=== PATIENT | female | born 1950 | race Caucasian/White ===

== ENCOUNTER → 2016-09-03 | Outpatient (CLI) | payer OTHER, MEDICARE | LOC: BHCLAF 13:30 | PROVIDERS: ATTEND Internal Medicine Cardiovascular Disease | DX: R07.89 Other chest pain (principal); R06.02 Shortness of breath | CPT/HCPCS: 93005-PO ==

== ENCOUNTER → 2016-09-09 | Outpatient (CLI) | payer OTHER, MEDICARE | LOC: BHFA 13:00 | PROVIDERS: ATTEND Internal Medicine Cardiovascular Disease | DX: R07.89 Other chest pain (principal) ==

== ENCOUNTER → 2016-09-15 | Outpatient (CLI) | payer OTHER, MEDICARE | LOC: BHFA 09:30 | PROVIDERS: ATTEND Internal Medicine Cardiovascular Disease | DX: R94.39 Abnormal result of other cardiovascular function study (principal); R07.89 Other chest pain; R06.02 Shortness of breath | CPT/HCPCS: 78452; 93017; A9500 ==

== ENCOUNTER → 2018-08-16 | Outpatient (CLI) | payer OTHER, MEDICARE | LOC: BHFA 10:00 | PROVIDERS: ATTEND Internal Medicine Cardiovascular Disease | DX: R00.2 Palpitations (principal) ==